=== PATIENT | male | born 1970 | race Caucasian/White ===

== ENCOUNTER 2021-12-09 16:49 | Emergency (ER) | payer OTHER ==
[~2021-12-09] VITALS: Ht 167.6 cm; Wt 78.0 kg
[2021-12-09 17:40] VITALS: BP_SYST 136
[2021-12-09] MEDS ORDERED: PRED20TA PO (19:14)
[2021-12-09] MEDS ORDERED: VALA10002 PO (19:14)
[2021-12-09] MEDS ORDERED: TRIA80OI TP (19:16)
[2021-12-09] MEDS ORDERED: NAPR-690 PO (19:16)
[2021-12-09] MEDS ORDERED: HYDR50TA61 PO (19:18)
[2021-12-09 19:44] VITALS: BP_SYST 132
--- NOTE | 2021-12-09 19:47 | NUR ---
DC PT HOME AAOX4, NO SOB NOTED AND NOT IN ANY DISTRESS. DC INSTRUCTION, WORK NOTE AND PRESCRIPTION WERE GIVEN TO PATIENT. HE VERBALIZED UNDERSTANDING.
== END 2021-12-09 19:46 | disposition home or self-care (01) ==
LOC: SED 16:49
DX: B02.9 Zoster without complications (principal); R21 Rash and other nonspecific skin eruption; R51.9 Headache, unspecified; Z79.899 Other long term (current) drug therapy
CPT/HCPCS: 99283